=== PATIENT | female | born 1985 | race African-American/Black ===

== ENCOUNTER 2020-03-06 16:59 | Emergency (ER) | payer SELFPAY ==
[~2020-03-06] VITALS: Ht 165.1 cm; Wt 63.5 kg
[2020-03-06 17:10] VITALS: BP 110/85
--- NOTE | 2020-03-06 17:36 | Emergency Room Report ---
History of Present Illness General Chief Complaint: Skin Rash/Abscess Source: Patient Present Illness HPI Disclaimer: Please note that this report is being documented using [employer] technology. This can lead to erroneous entry secondary to incorrect interpretation by the dictating instrument. HPI: 34-year-old female no reported past medical history presents with concern for cyst of her buttock. She states she went on a long bike ride and developed some pain and inflammation at the top of her buttock. She describes it as 10 out of 10 worse with sitting and movement and nonradiating. She denies any other injuries she denies history of infected pilonidal cyst in the past. 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 Patient History Last Menstrual Period: 02/14/2020 Now: No Nursing Documentation-PMH Past Medical History: No Stated History Review of Systems All Other Systems: negative except mentioned in HPI Physical Exam Vital Signs Date Time Temp Pulse Resp B/P (MAP) Pulse Ox O2 Delivery O2 Flow Rate FiO2 03/06/20 17:12 98.2 95 18 106/80 (89) 99 Room Air Sp02 EP Interpretation: reviewed, normal General Appearance: well appearing, no apparent distress Head: normocephalic, atraumatic Eyes: bilateral eye PERRL, bilateral eye EOMI ENT: hearing grossly normal, moist mucus membranes Neck: full range of motion, supple Respiratory: lungs clear, normal breath sounds, no rhonchi, no respiratory distress, no retraction, no wheezing Cardiovascular #1: normal peripheral pulses, regular rate, rhythm, no murmur Gastrointestinal: non tender, soft, non-distended, no guarding Neurologic: alert, oriented x3, no focal defects Skin: normal color, warm/dry, other - Tenderness noted at superior aspect of the gluteal cleft. Procedures Incision and Drainage Incision and Drainage : Consent: Verbal Blade Size: 11 I & D Procedure: sterile dressing applied, gauze wick placed Wound Location: other - Gluteal cleft Wound's Depth, Shape: superficial Anesthesia: Lidocaine w/ Epi Patient Tolerated: Well Complications: None Progress Large amount of purulent drainage noted. Wound packed with sterile gauze. Medical Decision Making ER Course Patient presented with what appeared to be an infected pilonidal abscess. Abscess drained by me. Patient will be discharged on oral antibiotics, wound care instructions and follow-up with PMD. I did recommend surgical follow-up as well if abscess recurs. Patient's wound was packed with gauze I instructed on her how to remove it at home in 24 hours. She was given return precautions. Stable for discharge. Last Vital Signs Date Time Temp Pulse Resp B/P (MAP) Pulse Ox O2 Delivery O2 Flow Rate FiO2 03/06/20 17:12 98.2 95 18 106/80 (89) 99 Room Air Status: improved Disposition: HOME, SELF-CARE Condition: Improved Scripts Hydrocodone Bit/Acetaminophen 5-325* (NORCO 5-325 TABLET*) 1 Each Tablet 1 TAB ORAL Q6H PRN for severe pain, #10 TAB 0 Refills Prov: Seven Garg M.D. 03/06/20 Ibuprofen* (MOTRIN*) 600 Mg Tablet 600 MG ORAL Q6H PRN for For Pain, #30 TAB 0 Refills Prov: Seven Garg M.D. 03/06/20 Clindamycin Hcl (CLINDAMYCIN HCL) 300 Mg Capsule 300 MG ORAL THREE TIMES A DAY, #21 CAP Prov: Seven Garg M.D. 03/06/20 Referrals: NOT CHOSEN CHLOE/,REFERRING (PCP) Seven Garg M.D. March 06, 2020 17:36
[2020-03-06] MEDS ORDERED: Lidocaine 1% 10mg/ml/Epi 0.005mg/ml 30ml vial INJ ONE (17:45)
[2020-03-06] MEDS ORDERED: IBUPROFEN600 M1 ORAL (18:00)
[2020-03-06] MEDS ORDERED: NORCO 5-325 TA1 EAC1 ORAL (18:00)
[2020-03-06] MEDS ORDERED: CLINDAMYCIN HC300 MG ORAL (18:00)
[2020-03-06 18:08] VITALS: BP 110/85
== END 2020-03-06 18:08 | disposition home or self-care (01) ==
LOC: EDSEX 16:59 → EMR 17:18
DX: L05.01 Pilonidal cyst with abscess (principal); Z88.0 Allergy status to penicillin; Z88.2 Allergy status to sulfonamides
CPT/HCPCS: 99283